=== PATIENT | female | born 1970 | race American Indian/Alaskan Native ===

== ENCOUNTER 2020-09-13 10:48 | Emergency (ER) | payer MEDICAID ==
[2020-09-13] MEDS ORDERED: IBUPROFEN 800 MG TAB PO ONE (11:36)
--- NOTE | 2020-09-13 11:37 | Emergency Department Report ---
ED Extremity Problem HPI - General Chief complaint: Extremity Problem,Nontraumatic Stated complaint: RT LEG PAIN Time Seen by Provider: 09/13/20 11:18 Source: patient Mode of arrival: Ambulatory Limitations: No Limitations - History of Present Illness Initial comments: 50-year-old female presents to the ER today complaint of right thigh pain. Patient states that her pain started about a week ago. She denies any injury or trauma or strenuous activity. Patient states that the pain is a burning pain that seems to be constant but waxes and wanes. She is unable to describe any modifying factors. She denies any associated swelling, bruising or erythema. She denies any lower back pain, lower extremity numbness, tingling, bowel or bladder incontinence, saddle anesthesia, fever or chills, chest pain or shortness of breath. patient states that she had similar symptoms sometime last year and she saw her primary care doctor who told her it was possibly arthritis or even sciatica. She states that she was prescribed Motrin by her primary care doctor and it did help her symptoms but she ran out. MD Complaint: extremity pain -: week(s) (1) - Related Data Allergies Allergy/AdvReac Type Severity Reaction Status Date / Time No Known Allergies Allergy Unverified 09/13/20 10:57 ED Review of Systems ROS: Stated complaint: RT LEG PAIN Other details as noted in HPI Comment: All other systems reviewed and negative Musculoskeletal: arthralgia, myalgia ED Past Medical Hx - Past Medical History Hx Diabetes: Yes Additional medical history: Tachycardia - Surgical History Past Surgical History?: No - Social History Smoking Status: Never Smoker Substance Use Type: None ED Physical Exam - General Limitations: No Limitations General appearance: alert, in no apparent distress - Head Head exam: Present: atraumatic, normocephalic, normal inspection - Respiratory Respiratory exam: Present: normal lung sounds bilaterally. Absent: respiratory distress - Cardiovascular Cardiovascular Exam: Present: regular rate - GI/Abdominal GI/Abdominal exam: Present: soft. Absent: distended, tenderness - Extremities Exam Extremities exam: Present: other (Patient has mild tenderness to palpation to the lateral aspect of her right thigh but other than that her right thigh appears normal without any swelling, bruising or erythema. Distal pulses are normal. Cap refill normal. No calf tenderness.) - Back Exam Back exam: Present: normal inspection, full ROM. Absent: tenderness - Neurological Exam Neurological exam: Present: alert, oriented X3, CN II-XII intact, normal gait - Psychiatric Psychiatric exam: Present: normal affect, normal mood - Skin Skin exam: Present: intact ED Course Vital Signs 09/13/20 10:57 Temperature 98.1 F Pulse Rate 95 H Respiratory 16 Rate Blood Pressure 107/75 O2 Sat by Pulse 98 Oximetry ED Medical Decision Making - Medical Decision Making 1302: Ultrasound came to get patient but she was not in the room. Nurse surgical patient but unable to find her. Apparently patient eloped without notifying myself nor nursing staff. Critical care attestation.: If time is entered above; I have spent that time in minutes in the direct care of this critically ill patient, excluding procedure time. ED Disposition Clinical Impression: Pain of right thigh Disposition: Z-07 ELOPED Is pt being admited?: No Does the pt Need Aspirin: No Condition: Stable
[2020-09-13 11:48] VITALS: BP 107/75
== END 2020-09-13 12:30 | disposition left against medical advice (07) ==
LOC: ED 10:48
DX: M79.651 Pain in right thigh (principal); E11.9 Type 2 diabetes mellitus without complications
CPT/HCPCS: 99281

== ENCOUNTER 2020-11-06 10:38 | Emergency (ER) | payer MEDICAID ==
[2020-11-06 11:01] VITALS: BP 137/84
--- NOTE | 2020-11-06 11:13 | Emergency Department Report ---
ED ENT HPI - General Chief complaint: Dental/Oral Stated complaint: TOOTHACHE Time Seen by Provider: 11/06/20 11:07 Source: patient Mode of arrival: Ambulatory Limitations: No Limitations - History of Present Illness Initial comments: 50-year-old -[place] female presents to the emergency room complaining of a toothache that is started today and right-sided facial swelling since yesterday. Patient is aware that she has some teeth that need to be repaired. Patient denies any fever chills no nausea no vomiting. Patient states that she took ibuprofen which is not helping. She has a sensitivity to tramadol history of diabetes and she does smoke. MD complaint: tooth pain Onset/Timin -: days(s) Severity: severe Quality: stabbing, aching Consistency: constant Improves with: none Worsens with: eating Context- Dental: poor dental care Associated Symptoms: toothache. denies: fever, cough - Related Data Previous Rx's Medication Instructions Recorded Last Taken Type Clindamycin [Clindamycin CAP] 300 mg PO Q8H 10 Days #30 cap 11/06/20 Unknown Rx Allergies Allergy/AdvReac Type Severity Reaction Status Date / Time No Known Allergies Allergy Verified 11/06/20 10:55 ED Dental HPI - General Chief complaint: Dental/Oral Stated complaint: TOOTHACHE Time Seen by Provider: 11/06/20 11:07 Source: patient Mode of arrival: Ambulatory Limitations: No Limitations - Related Data Previous Rx's Medication Instructions Recorded Last Taken Type Clindamycin [Clindamycin CAP] 300 mg PO Q8H 10 Days #30 cap 11/06/20 Unknown Rx Allergies Allergy/AdvReac Type Severity Reaction Status Date / Time No Known Allergies Allergy Verified 11/06/20 10:55 ED Review of Systems ROS: Stated complaint: TOOTHACHE Other details as noted in HPI Comment: All other systems reviewed and negative ED Past Medical Hx - Past Medical History Hx Diabetes: Yes Additional medical history: Tachycardia - Surgical History Additional Surgical History: D&C - Social History Smoking Status: Never Smoker Substance Use Type: None - Medications Home Medications: Home Medications Medication Instructions Recorded Confirmed Last Taken Type Clindamycin [Clindamycin CAP] 300 mg PO Q8H 10 Days #30 cap 11/06/20 Unknown Rx ED Physical Exam - General Limitations: No Limitations General appearance: alert, in no apparent distress - Head Head exam: Present: atraumatic, normocephalic - Eye Eye exam: Present: normal appearance - ENT ENT exam: Present: mucous membranes moist - Expanded ENT Exam Expanded Teeth exam: Present: dental caries, dental tenderness #, gingival enlargement, other (Right side facial swelling to the upper cheek with tenderness) - Respiratory Respiratory exam: Present: normal lung sounds bilaterally. Absent: accessory muscle use - Cardiovascular Cardiovascular Exam: Present: tachycardia - Extremities Exam Extremities exam: Present: normal inspection, full ROM - Back Exam Back exam: Present: normal inspection - Neurological Exam Neurological exam: Present: alert, oriented X3, normal gait - Psychiatric Psychiatric exam: Present: normal affect, normal mood - Skin Skin exam: Present: warm, dry, intact, normal color. Absent: rash ED Course Vital Signs 11/06/20 10:59 Temperature 97.8 F Pulse Rate 110 H Respiratory 20 Rate Blood Pressure 137/84 O2 Sat by Pulse 98 Oximetry ED Medical Decision Making - Medical Decision Making 50-year-old -[place] female presents to the emergency room complaining of a toothache that is started today and right-sided facial swelling since yesterday. Patient is aware that she has some teeth that need to be repaired. Patient denies any fever chills no nausea no vomiting. Patient states that she took ibuprofen which is not helping. She has a sensitivity to tramadol history of diabetes and she does smoke. Patient will be treated for dental abscess with clindamycin 300 mg every 8 hours for 10 days dispense 30. Patient to take ibuprofen or Tylenol for pain management. Patient is to follow-up with a dentist. Increase your fluids. Stop smoking. Critical care attestation.: If time is entered above; I have spent that time in minutes in the direct care of this critically ill patient, excluding procedure time. ED Disposition Clinical Impression: Abscess, dental, Chronic tachycardia Disposition: DC-01 TO HOME OR SELFCARE Is pt being admited?: No Does the pt Need Aspirin: No Condition: Stable Instructions: Dental Abscess, [id number] Additional Instructions: Complete antibiotics as prescribed. Take Tylenol or ibuprofen for pain. Increase your fluid intake advance your diet as tolerated and follow-up with a dentist. Prescriptions: Clindamycin [Clindamycin CAP] 300 mg PO Q8H 10 Days #30 cap Referrals: [facility] [Outside] - 3-5 Days [facility] [Outside] - 3-5 Days Forms: Work/School Release Form(ED)
== END 2020-11-06 11:32 | disposition home or self-care (01) ==
LOC: ED 10:38
DX: K04.7 Periapical abscess without sinus (principal); R00.0 Tachycardia, unspecified; E11.9 Type 2 diabetes mellitus without complications; Z98.890 Other specified postprocedural states; Z79.2 Long term (current) use of antibiotics
CPT/HCPCS: 99282